=== PATIENT | female | born 1945 | race Two or more races ===

== ENCOUNTER 2019-03-29 08:41 | Outpatient (CLI) | payer OTHER ==
[~2019-03-29 08:41] MED LIST: ALTACE5 MG PO; JANUVIA100 MG PO; METFORMIN HCL500 MG PO; ZOCOR20 MG PO
== END 2019-03-29 08:47 | disposition home or self-care (01) ==
LOC: RAD 08:41 → SONOGRAMA 08:45 → RAD 08:47
DX: J01.80 Other acute sinusitis (principal); M79.642 Pain in left hand; J32.8 Other chronic sinusitis